=== PATIENT | female | born 1995 ===

== ENCOUNTER → 2021-07-20 17:00 | Outpatient (BNVA) | payer MEDICAID, SELFPAY | PROVIDERS: Visit Provider Nurse Practitioner Family | DX: E66.9 Obesity, unspecified (principal); G56.01 Carpal tunnel syndrome, right upper limb | CPT/HCPCS: 80053; 80061; 82306; 82607; 84443; 85025 ==

== ENCOUNTER → 2022-01-19 17:20 | Outpatient (BNVA) | payer MEDICAID, SELFPAY | PROVIDERS: Visit Provider Nurse Practitioner Family | DX: E55.9 Vitamin D deficiency, unspecified (principal); J32.9 Chronic sinusitis, unspecified; Z13.6 Encounter for screening for cardiovascular disorders; H92.02 Otalgia, left ear; E66.9 Obesity, unspecified; H65.02 Acute serous otitis media, left ear; R42 Dizziness and giddiness; Z76.89 Persons encountering health services in other specified circumstances; Z71.3 Dietary counseling and surveillance | CPT/HCPCS: 80053; 82306 ==

== ENCOUNTER → 2022-10-25 11:19 | Outpatient (BNVA) | payer MEDICAID, SELFPAY | PROVIDERS: Visit Provider Nurse Practitioner Family | DX: F41.9 Anxiety disorder, unspecified (principal); F32.A Depression, unspecified; G47.00 Insomnia, unspecified; Z20.2 Contact with and (suspected) exposure to infections with a predominantly sexual mode of transmission; E28.2 Polycystic ovarian syndrome | CPT/HCPCS: 87491; 87591; 87661 ==

== ENCOUNTER → 2023-03-20 16:09 | Outpatient (BNVA) | payer MEDICAID, SELFPAY | PROVIDERS: Visit Provider Nurse Practitioner Family | DX: F41.9 Anxiety disorder, unspecified (principal); F32.A Depression, unspecified; E55.9 Vitamin D deficiency, unspecified; J30.2 Other seasonal allergic rhinitis; K21.9 Gastro-esophageal reflux disease without esophagitis; L65.8 Other specified nonscarring hair loss; J32.9 Chronic sinusitis, unspecified; J02.8 Acute pharyngitis due to other specified organisms; B96.89 Other specified bacterial agents as the cause of diseases classified elsewhere; H66.93 Otitis media, unspecified, bilateral; J06.9 Acute upper respiratory infection, unspecified | CPT/HCPCS: 80053 ==